=== PATIENT | male | born 2000 | race African-American/Black ===

== ENCOUNTER 2020-09-15 20:26 | Emergency (ER) | payer OTHER ==
--- NOTE | 2020-09-15 21:09 | XRAY Report ---
PROCEDURE: Chest 2 View X-Ray INDICATIONS: cough TECHNIQUE: 2 view(s) of the chest. COMPARISON: None. FINDINGS: Surgical changes and devices: None. Lungs and pleura: No pleural effusions or pneumothorax. Lungs are clear. Mediastinum: Mediastinal contours are normal. Heart size is normal. Bones and chest wall: No suspicious bony abnormalities. Soft tissues appear unremarkable. IMPRESSION: Normal chest pain films, without infiltrates. Reviewed by: Trevor Santillan MD on 09/15/2020 8:08 PM GILBERTO Approved by: Trevor Santillan MD on 09/15/2020 8:08 PM GILBERTO Station ID: [id number]
[2020-09-15] MEDS ORDERED: guaiFENesin/CODEINE 5 ML UDC PO STA (21:27)
--- NOTE | 2020-09-15 21:27 | ED Physician Documentation ---
PD HPI DYSPNEA - Stated complaint Stated Complaint: CONGESTION,COUGH - Chief complaint Chief Complaint: Resp - History obtained from History obtained from: Patient - Additional information Additional information: Previously healthy 20-year-old gentleman albeit with a history of pneumonia presents with 3 days of productive cough, some shortness of breath. He denies fevers or chills. He is fully immunized against Covid. Review of Systems Constitutional: denies: Fever, Chills Nose: denies: Rhinorrhea / runny nose Cardiac: denies: Chest pain / pressure, Palpitations PD PAST MEDICAL HISTORY - Past Medical History Past Medical History: Yes Respiratory: Pneumonia - Past Surgical History Past Surgical History: No - Present Medications Home Medications: Ambulatory Orders Medication Instructions Recorded Confirmed Albuterol Sulf [Ventolin Hfa 1 - 2 puffs INH Q4HR PRN #1 inhaler 09/15/20 Inhaler] Naproxen Sodium [Aleve] 1 tab PO DAILY PRN 09/15/20 09/15/20 guaiFENesin/CODEINE [Robitussin AC] 5 - 10 ml PO Q6H PRN #120 ml 09/15/20 - Allergies Allergies/Adverse Reactions: Allergies Allergy/AdvReac Type Severity Reaction Status Date / Time No Known Drug Allergies Allergy Verified 09/15/20 20:37 - Social History Does the pt smoke?: Yes Smoking Status: Current every day smoker Does the pt drink ETOH?: No Does the pt have substance abuse?: No - Immunizations Immunizations are current?: Yes - POLST Patient has POLST: No PD ED PE NORMAL - Vitals Vital signs reviewed: Yes - General General: Alert and oriented X 3, No acute distress - HEENT HEENT: PERRL, EOMI - Neck Neck: No bony TTP - Cardiac Cardiac: RRR, No murmur - Respiratory Respiratory: No respiratory distress, Clear bilaterally - Abdomen Abdomen: Non tender - Derm Derm: Normal color, Warm and dry Results - Vitals Vitals: Vital Signs - 24 hr 09/15/20 09/15/20 20:34 21:44 Temperature 36.6 C 36.9 C Heart Rate 86 77 Respiratory 18 16 Rate Blood Pressure 120/77 126/57 L O2 Saturation 97 98 Oxygen O2 Source Room air - Rads (name of study) 2 view chest x-ray Radiology: EMP read contemporaneously (Normal) PD MEDICAL DECISION MAKING - ED course ED course: 20-year-old gentleman presents with 3 days of productive cough but really no physical findings, chest x-ray negative. Nothing to suggest pneumonia. Watchful waiting and symptomatic medications were prescribed. Departure - Departure Disposition: 01 Home, Self Care Clinical Impression: Bronchitis Upper respiratory tract infection Qualifiers: URI type: unspecified viral URI Qualified Code(s): J06.9 - Acute upper respiratory infection, unspecified Condition: Good Record reviewed to determine appropriate education?: Yes Instructions: ED Upper Resp Infec No Abx Tx Prescriptions: Albuterol Sulf [Ventolin Hfa Inhaler] 1 - 2 puffs INH Q4HR PRN #1 inhaler PRN Reason: Shortness Of Air/Wheezing guaiFENesin/CODEINE [Robitussin AC] 5 - 10 ml PO Q6H PRN #120 ml PRN Reason: Cough Comments: Follow-up with your doctor in a few days if not better, return for new or worsening symptoms. Forms: Activity restrictions Discharge Date/Time: 09/15/20 21:48
[2020-09-15 21:46] VITALS: BP 126/57
== END 2020-09-15 21:48 | disposition home or self-care (01) ==
LOC: ED 20:26
DX: J20.9 Acute bronchitis, unspecified (principal); F17.200 Nicotine dependence, unspecified, uncomplicated
CPT/HCPCS: 71046; 99283; 99284; A9270

== ENCOUNTER 2021-02-07 01:20 | Emergency (ER) | payer OTHER ==
--- NOTE | 2021-02-07 01:36 | ED Physician Documentation ---
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 It was discovered that he had taken 2 Vicodin from an old bottle. The patient is not forthcoming with information. He does acknowledge depression he does acknowledge suicidal ideation and he does acknowledge that he does not have a plan. He is able to cooperate with review of systems and indicates that he is not currently ill. Review of Systems Constitutional: denies: Fever Eyes: denies: Decreased vision Ears: denies: Ear pain Nose: denies: Congestion Throat: denies: Sore throat Cardiac: denies: Chest pain / pressure Respiratory: denies: Dyspnea, Cough, Wheezing GI: denies: Abdominal Pain, Nausea, Vomiting, Constipation, Diarrhea : denies: Dysuria, Frequency Skin: denies: Rash Musculoskeletal: denies: Neck pain, Back pain, Extremity pain Neurologic: denies: Generalized weakness, Focal weakness, Numbness Psychiatric: reports: Depressed, Suicidal PD PAST MEDICAL HISTORY - Past Medical History Respiratory: Pneumonia - Past Surgical History Past Surgical History: No - Present Medications Home Medications: Ambulatory Orders Medication Instructions Recorded Confirmed Albuterol Sulf [Ventolin Hfa 1 - 2 puffs INH Q4HR PRN #1 inhaler 09/15/20 Inhaler] Naproxen Sodium [Aleve] 1 tab PO DAILY PRN 09/15/20 09/15/20 guaiFENesin/CODEINE [Robitussin AC] 5 - 10 ml PO Q6H PRN #120 ml 09/15/20 - Allergies Allergies/Adverse Reactions: Allergies Allergy/AdvReac Type Severity Reaction Status Date / Time No Known Drug Allergies Allergy Verified 02/07/21 01:34 - Social History Does the pt smoke?: Yes Smoking Status: Current every day smoker Does the pt drink ETOH?: No Does the pt have substance abuse?: No - Immunizations Immunizations are current?: Yes - POLST Patient has POLST: No PD ED PE NORMAL - Vitals Vital signs reviewed: Yes - General General: No acute distress, Well developed/nourished, Other (21-year-old male with a flat affect and minimal communication communicates mostly by nods. I am able to get him to engage when discussing who the characters are on his shoes. There are characters from anime.) - HEENT HEENT: Atraumatic, PERRL, EOMI - Neck Neck: Supple, no meningeal sign, No bony TTP, No adenopathy - Cardiac Cardiac: RRR, No murmur - Respiratory Respiratory: No respiratory distress, Clear bilaterally - Abdomen Abdomen: Normal bowel sounds, Soft, Non tender, Non distended, No organomegaly - Back Back: No CVA TTP, No spinal TTP - Derm Derm: Normal color, Warm and dry, No rash - Extremities Extremities: No deformity, No edema - Neuro Neuro: pearl glue drier 2-12 intact, No motor deficit, No sensory deficit, Normal speech Eye Opening: Spontaneous Motor: Obeys Commands Verbal: Oriented GCS Score: 15 - Psych Psych: Other (mood is withdrawn and the affect is flat ) Results - Vitals Vitals: Vital Signs - 24 hr 02/07/21 01:26 Temperature 36.7 C Heart Rate 60 Respiratory 18 Rate Blood Pressure 141/93 H O2 Saturation 99 Oxygen O2 Source Room air - Labs Labs: Laboratory Tests 02/07/21 02/07/21 02/07/21 01:35 01:41 01:41 WBC 10.6 RBC 6.76 H Hgb 13.3 L Hct 43.1 MCV 63.8 L MCH 19.7 L MCHC 30.9 L RDW 19.7 H Plt Count 280 MPV 8.8 Neut # (Auto) 7.6 H Lymph # (Auto) 2.1 [place] # (Auto) 0.8 Eos # (Auto) 0.1 Baso # (Auto) 0.0 Absolute Nucleated RBC 0.02 Nucleated RBC % 0.2 Manual Slide Review Indicated WBC Morphology NORMAL APPEARANCE Platelet Estimate NORMAL (130-450,000) Platelet Morphology NORMAL APPEARANCE RBC Morph Micro Appear 1+ MICROCYTOSIS Sodium 138 Potassium 3.7 Chloride 102 Carbon Dioxide 26 Anion Gap 10.0 BUN 18 Creatinine 1.0 Estimated GFR (MDRD) 114 Glucose 111 H Calcium 9.9 Total Bilirubin 1.0 AST 68 H ALT 103 H Alkaline Phosphatase 93 Total Protein 8.1 Albumin 4.7 Globulin 3.4 Albumin/Globulin Ratio 1.4 Lipase 41 TSH Urine Color YELLOW Urine Clarity CLEAR Urine pH 6.0 Ur Specific [place] 1.025 Urine Protein NEGATIVE Urine Glucose (UA) NEGATIVE Urine Ketones NEGATIVE Urine Occult Blood NEGATIVE Urine Nitrite NEGATIVE Urine Bilirubin NEGATIVE Urine Urobilinogen 0.2 (NORMAL) Ur Leukocyte Esterase NEGATIVE Ur Microscopic Review NOT INDICATED Urine Culture Comments NOT INDICATED Salicylates < 6.0 Urine Opiates Screen POSITIVE H Ur Oxycodone Screen NEGATIVE Urine Methadone Screen NEGATIVE Ur Propoxyphene Screen NEGATIVE Acetaminophen 11 Ur Barbiturates Screen NEGATIVE Ur Tricyclics Screen NEGATIVE Ur Phencyclidine Scrn NEGATIVE Ur Amphetamine Screen NEGATIVE U Methamphetamines Scrn NEGATIVE U Benzodiazepines Scrn NEGATIVE Urine Cocaine Screen NEGATIVE U Cannabinoids Screen NEGATIVE Ethyl Alcohol < 5.0 02/07/21 01:41 WBC RBC Hgb Hct MCV MCH MCHC RDW Plt Count MPV Neut # (Auto) Lymph # (Auto) Clarke # (Auto) Eos # (Auto) Baso # (Auto) Absolute Nucleated RBC Nucleated RBC % Manual Slide Review WBC Morphology Platelet Estimate Platelet Morphology RBC Morph Micro Appear Sodium Potassium Chloride Carbon Dioxide Anion Gap BUN Creatinine Estimated GFR (MDRD) Glucose Calcium Total Bilirubin AST ALT Alkaline Phosphatase Total Protein Albumin Globulin Albumin/Globulin Ratio Lipase TSH 2.43 Urine Color Urine Clarity Urine pH Ur Specific [place] Urine Protein Urine Glucose (UA) Urine Ketones Urine Occult Blood Urine Nitrite Urine Bilirubin Urine Urobilinogen Ur Leukocyte Esterase Ur Microscopic Review Urine Culture Comments Salicylates Urine Opiates Screen Ur Oxycodone Screen Urine Methadone Screen Ur Propoxyphene Screen Acetaminophen Ur Barbiturates Screen Ur Tricyclics Screen Ur Phencyclidine Scrn Ur Amphetamine Screen U Methamphetamines Scrn U Benzodiazepines Scrn Urine Cocaine Screen U Cannabinoids Screen Ethyl Alcohol PD MEDICAL DECISION MAKING - ED course Complexity details: reviewed old records, reviewed results, re-evaluated patient, considered differential, d/w patient ED course: 21-year-old male with apparent history of mental illness 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 He presents to the emergency department withdrawn and with a flattened affect and not willing to share information. He is able to cooperate with review of systems but specifics about his mental illness symptoms are not forthcoming. He does indicate that he is suicidal wants to hurt himself but does not have a plan. A physical exam is unremarkable and blood work and urinalysis are pending. The tox screen is positive for opiates and remainder of his work-up and physical exam are unremarkable. The patient does not appear to have overdosed on narcotic. He does not have a specific plan but continues to indicate that he is feeling suicidal. I have contacted Dr. Otero at [facility] and he is willing to accept Mr. Cheatham in transfer to the [facility]. Departure - Departure Disposition: 65 Psych Hosp/Unit DC/Xfer Clinical Impression: Suicidal ideation Depression Qualifiers: Depression Type: major depressive disorder Major depression recurrence: unspecified whether recurrent Active/Remission status: currently active Major depression episode severity: moderate Qualified Code(s): F32.1 - Major depressive disorder, single episode, moderate
[2021-02-07 01:42] LABS: BILIRUBIN,URINE NEGATIVE (NEGATIVE); CLARITY,URINE CLEAR (CLEAR); GLUCOSE, URINE (UA) NEGATIVE (NEGATIVE); KETONES,URINE (UA) NEGATIVE (NEGATIVE); LEUKOCYTE ESTERASE, URINE NEGATIVE (NEGATIVE); MUDS CUTOFF CONCENTRATIONS CUTOFF CONC BELOW:; NITRITE,URINE NEGATIVE (NEGATIVE); OCCULT BLOOD,URINE NEGATIVE (NEGATIVE); PROTEIN,URINE NEGATIVE (NEGATIVE); UROBILINOGEN,URINE 0.2 (NORMAL) E.U./dL (NORMAL)
[2021-02-07 01:45] LABS: BASOPHILS % (AUTO) 0.4 %; EOSINOPHILS # (AUTO) 0.1 10^3/uL (0.0-0.7); EOSINOPHILS % (AUTO) 0.7 %; HCT - HEMATOCRIT 43.1 % (42.0-52.0); HGB - HEMOGLOBIN 13.3 g/dL (14.0-18.0); LYMPHOCYTES # (AUTO) 2.1 10^3/uL (1.5-3.5); MEAN CORPUSCULAR HEMOGLOBIN 19.7 pg (27.0-31.0); MEAN CORPUSCULAR HGB CONC 30.9 g/dL (32.0-36.0); MEAN CORPUSCULAR VOLUME 63.8 fL (80.0-94.0); MEAN PLATELET VOLUME 8.8 fL (7.4-11.4); MONOCYTES # (AUTO) 0.8 10^3/uL (0.0-1.0); MONOCYTES % (AUTO) 7.7 %; NEUTROPHILS # (AUTO) 7.6 10^3/uL (1.5-6.6); NRBC ABSOLUTE COUNT (AUTO) 0.02 x10^3/uL; NUCLEATED RED BLOOD CELLS AUTO 0.2 /100WBC; PLT - PLATELET COUNT 280 10^3/uL (130-450); RED BLOOD COUNT 6.76 10^6/uL (4.70-6.10); RED CELL DISTRIBUTION WIDTH 19.7 % (12.0-15.0); WHITE BLOOD COUNT 10.6 x10^3/uL (4.8-10.8)
[2021-02-07 01:51] LABS: AMPHETAMINE SCREEN,URINE NEGATIVE (NEGATIVE); BARBITURATE SCREEN,UR NEGATIVE (NEGATIVE); BENZODIAZEPINES SCREEN, URINE NEGATIVE (NEGATIVE); COCAINE SCREEN URINE NEGATIVE (NEGATIVE); METHADONE SCREEN, URINE NEGATIVE (NEGATIVE); METHAMPHETAMINES SCREEN, URINE NEGATIVE (NEGATIVE); OPIATE SCREEN, URINE POSITIVE (NEGATIVE); OXYCODONE SCREEN, URINE NEGATIVE (NEGATIVE); PROPOXYPHENE SCREEN, URINE NEGATIVE (NEGATIVE); THC CANNABINOID SCREEN, URINE NEGATIVE (NEGATIVE); TRICYCLIC ANTIDEPRESSANT,URINE NEGATIVE (NEGATIVE)
[2021-02-07 02:00] LABS: ACETAMINOPHEN 11 ug/mL (10-30); ALBUMIN 4.7 g/dL (3.2-5.5); ALBUMIN/GLOBULIN RATIO 1.4 (1.0-2.2); ALKALINE PHOSPHATASE 93 IU/L (42-121); ALT ALANINE AMINOTRANSFERASE 103 IU/L (10-60); AST ASPARTATE AMINOTRANSFERASE 68 IU/L (10-42); BUN - BLOOD UREA NITROGEN 18 mg/dL (6-20); CALCIUM 9.9 mg/dL (8.5-10.3); CARBON DIOXIDE - CO2 26 mmol/L (21-32); CHLORIDE 102 mmol/L (101-111); ETOH - ETHANOL < 5.0 mg/dL; GFR - MDRD 114 (>89); GLUCOSE 111 mg/dL (70-100); LIPASE 41 U/L (22-51); PLATELET MORPHOLOGY NORMAL APPEARANCE (NORMAL); POTASSIUM 3.7 mmol/L (3.5-5.0); RBC MORPHOLOGY (MULTIPLE) 1+ MICROCYTOSIS (NORMAL); SALICYLATE < 6.0 mg/dL; SODIUM 138 mmol/L (135-145); TOTAL PROTEIN 8.1 g/dL (6.7-8.2)
[2021-02-07 02:01] LABS: PLATELET ESTIMATE, MANUAL NORMAL (130-450,000) (NORMAL); SLIDE REVIEW? Indicated; WBC MORPHOLOGY (MULTIPLE) NORMAL APPEARANCE (NORMAL)
[2021-02-07 05:49] LABS: B. PARAPERTUSSIS- RESP PCR PAN NOT DETECTED; B. PERTUSSIS- RESP PCR PANEL NOT DETECTED; C. PNEUMONIAE- RESP PCR PANEL NOT DETECTED; CORONAVIRUS 229E-RESP PCR NOT DETECTED; CORONAVIRUS HKU1-RESP PCR NOT DETECTED; CORONAVIRUS NL63-RESP PCR NOT DETECTED; CORONAVIRUS OC43-RESP PCR NOT DETECTED; HUMAN METAPNEUMOVIRUS NOT DETECTED; INFLUENZA A- RESP PCR PANEL NOT DETECTED; INFLUENZA B - RESP PCR PANEL NOT DETECTED; M. PNEUMONIAE- RESP PCR PANEL NOT DETECTED; PARAINFLUENZA VIRUS 1 NOT DETECTED; PARAINFLUENZA VIRUS 2 NOT DETECTED; PARAINFLUENZA VIRUS 3 NOT DETECTED; PARAINFLUENZA VIRUS 4 NOT DETECTED; RHINOVIRUS/ENTEROVIRUS NOT DETECTED; RSV- RESP PCR PANEL NOT DETECTED; SARS-CoV-2 -RESP PCR PANEL NOT DETECTED
[2021-02-07 08:24] VITALS: BP 119/69
== END 2021-02-07 08:28 ==
LOC: EDUNIT# → ED 01:20
DX: R45.851 Suicidal ideations (principal); F17.200 Nicotine dependence, unspecified, uncomplicated
CPT/HCPCS: 0202U; 36415; 80053; 80306; 80307; 80320; 80329; 81003; 83690; 84443; 85025; 99283; 99285; 81001; 87086

== ENCOUNTER 2021-07-13 21:05 | Emergency (ER) | payer OTHER ==
[2021-07-13] MEDS ORDERED: MAG HYDROX/AL HYDROX/SIMETH 30 ML UDC PO STA (21:37)
[2021-07-13] MEDS ORDERED: LIDOCAINE VISCOUS 2% 15 ML UDC MM STA (21:37)
[2021-07-13] MEDS ORDERED: ONDANSETRON ODT 4 MG Prepack 2 TL PRN (21:37)
[2021-07-13] MEDS ORDERED: FAMOTIDINE 20 MG TABLET PO STA (21:38)
[2021-07-13] MEDS ORDERED: diphenhydrAMINE ELIXIR 25 MG/10 ML UDC PO STA (21:38)
--- NOTE | 2021-07-13 21:40 | ED Physician Documentation ---
History of Present Illness - Stated complaint Stated Complaint: ABD PAIN, C+, DIZZY - Chief complaint Chief Complaint: Abd Pain - History obtained from History obtained from: Patient - Additonal information Additional information: 21yM with pmh depression, recent diagnosis of covid 6 days ago (fully vaccinated but not boosted), p/w epigastric abd pain gradual onset, constant since noon today, burning, radiating to midupper abdomen, a/w loose stool prior to arrival. patient has had 3 BMs today which is unusual for him. denies urinary sx, back pain, soa, fever, cough. Patient denies PSH. Social- occasional etoh (1-2 servings a week). Patient denies drinking this week. +smoker Review of Systems Ten Systems: 10 systems reviewed and negative Constitutional: denies: Fever, Chills, Myalgias, Fatigue Cardiac: denies: Chest pain / pressure Respiratory: denies: Dyspnea, Cough GI: reports: Nausea, Diarrhea. denies: Vomiting, Constipation : denies: Dysuria, Frequency, Hematuria Neurologic: reports: Generalized weakness PD PAST MEDICAL HISTORY - Past Medical History Respiratory: Pneumonia - Past Surgical History Past Surgical History: No - Present Medications Home Medications: Ambulatory Orders Medication Instructions Recorded Confirmed Albuterol Sulf [Ventolin Hfa 1 - 2 puffs INH Q4HR PRN #1 inhaler 09/15/20 Inhaler] Naproxen Sodium [Aleve] 1 tab PO DAILY PRN 09/15/20 09/15/20 guaiFENesin/CODEINE [Robitussin AC] 5 - 10 ml PO Q6H PRN #120 ml 09/15/20 Ondansetron Odt [Zofran Odt] 4 mg TL Q6H PRN #10 tablet 07/13/21 Sertraline HCl 200 mg 07/13/21 - Allergies Allergies/Adverse Reactions: Allergies Allergy/AdvReac Type Severity Reaction Status Date / Time No Known Drug Allergies Allergy Verified 02/07/21 01:34 - Social History Does the pt smoke?: Yes Smoking Status: Current every day smoker Does the pt drink ETOH?: No Does the pt have substance abuse?: No - Immunizations Immunizations are current?: Yes - POLST Patient has POLST: No PD ED PE NORMAL - Vitals Vital signs reviewed: Yes - General General: Alert and oriented X 3, No acute distress, Well developed/nourished - HEENT HEENT: Atraumatic, PERRL, EOMI - Neck Neck: Supple, no meningeal sign - Cardiac Cardiac: RRR - Respiratory Respiratory: No respiratory distress, Clear bilaterally - Abdomen Abdomen: Non tender, Non distended, Other (epigastric discomfort to palpation) - Back Back: No CVA TTP - Derm Derm: Normal color, Warm and dry - Extremities Extremities: No deformity, No edema - Neuro Neuro: Alert and oriented X 3, No motor deficit, No sensory deficit - Psych Psych: Normal mood, Normal affect Results - Vitals Vitals: Vital Signs - 24 hr 07/13/21 21:13 Temperature 37.2 C Heart Rate 73 Respiratory 16 Rate Blood Pressure 137/95 H O2 Saturation 98 Oxygen O2 Source Room air PD MEDICAL DECISION MAKING - ED course ED course: 21yM with pmh depression and recent covid 19 diagnosis p/w nausea, loose stools, and epigastric pain. Abdominal exam benign and vitals are normal. symptomatic care provided and return precautions given. Departure - Departure Disposition: 01 Home, Self Care Clinical Impression: COVID-19, Abdominal pain, Loose stools Condition: Stable Instructions: COVID-19 [facility], COVID-19 [facility] Department Statement Prescriptions: Ondansetron Odt [Zofran Odt] 4 mg TL Q6H PRN #10 tablet PRN Reason: Nausea / Vomiting Comments: You were seen in the emergency department for nausea, abdominal pain, and COVID- 19. You can take Zofran as needed for nausea and [id number] Maalox or Gaviscon for abdominal pain. Return to the emergency department if you have any new or worsening symptoms or other concerns.[place]
[2021-07-13 22:13] VITALS: BP 128/89
== END 2021-07-13 22:13 | disposition home or self-care (01) ==
LOC: EDUNIT# → EDBD → ED 21:05
DX: U07.1 COVID-19 (principal); R10.13 Epigastric pain; R19.7 Diarrhea, unspecified; R11.0 Nausea; F17.200 Nicotine dependence, unspecified, uncomplicated
CPT/HCPCS: 99283; 99284; A9270

== ENCOUNTER 2021-09-05 14:02 | Observation (INO) | payer OTHER ==
[2021-09-05 15:08] LABS: BASOPHILS % (AUTO) 0.3 %; EOSINOPHILS # (AUTO) 0.1 10^3/uL (0.0-0.7); EOSINOPHILS % (AUTO) 1.8 %; HCT - HEMATOCRIT 36.4 % (42.0-52.0); HGB - HEMOGLOBIN 11.5 g/dL (14.0-18.0); LYMPHOCYTES # (AUTO) 2.1 10^3/uL (1.5-3.5); LYMPHOCYTES % (AUTO) 26.5 %; MEAN CORPUSCULAR HEMOGLOBIN 19.5 pg (27.0-31.0); MEAN CORPUSCULAR HGB CONC 31.6 g/dL (32.0-36.0); MEAN CORPUSCULAR VOLUME 61.6 fL (80.0-94.0); MEAN PLATELET VOLUME 8.8 fL (7.4-11.4); MONOCYTES # (AUTO) 0.8 10^3/uL (0.0-1.0); MONOCYTES % (AUTO) 10.3 %; NEUTROPHILS # (AUTO) 4.9 10^3/uL (1.5-6.6); NEUTROPHILS % (AUTO) 60.8 %; PLT - PLATELET COUNT 241 10^3/uL (130-450); RED BLOOD COUNT 5.91 10^6/uL (4.70-6.10); RED CELL DISTRIBUTION WIDTH 18.3 % (12.0-15.0)
[2021-09-05 16:00] LABS: CALCIUM 9.7 mg/dL (8.5-10.3); CREATININE 0.9 mg/dL (0.6-1.2); POTASSIUM 3.9 mmol/L (3.5-5.0)
[2021-09-05] MEDS ORDERED: SODIUM CHLORIDE 0.9% 1,000 ML IV STA (16:03)
--- NOTE | 2021-09-05 16:46 | ED Physician Documentation ---
PD HPI UPPER EXT INJURY - Stated complaint Stated Complaint: BILAT ARM PX - Chief complaint Chief Complaint: Ext Problem - History obtained from History obtained from: Patient - Additonal information Additional information: 4 days ago he was lifting weights with the upper extremities, mostly curls, heavily. Developed pain The next [place], presumed rhabdomyolysis as he was referred to the emergency department without a call ahead for admission. Review of Systems Ten Systems: 10 systems reviewed and negative Constitutional: reports: Reviewed and negative Cardiac: reports: Reviewed and negative Respiratory: reports: Reviewed and negative PD PAST MEDICAL HISTORY - Past Medical History Respiratory: Pneumonia - Past Surgical History Past Surgical History: No - Present Medications Home Medications: Ambulatory Orders Medication Instructions Recorded Confirmed Albuterol Sulf [Ventolin Hfa 1 - 2 puffs INH Q4HR PRN #1 inhaler 09/15/20 Inhaler] Naproxen Sodium [Aleve] 1 tab PO DAILY PRN 09/15/20 09/15/20 guaiFENesin/CODEINE [Robitussin AC] 5 - 10 ml PO Q6H PRN #120 ml 09/15/20 Ondansetron Odt [Zofran Odt] 4 mg TL Q6H PRN #10 tablet 07/13/21 Sertraline HCl 200 mg 07/13/21 - Allergies Allergies/Adverse Reactions: Allergies Allergy/AdvReac Type Severity Reaction Status Date / Time No Known Drug Allergies Allergy Verified 09/05/21 14:10 - Social History Does the pt smoke?: Yes Smoking Status: Current every day smoker Does the pt drink ETOH?: No Does the pt have substance abuse?: No - Immunizations Immunizations are current?: Yes - POLST Patient has POLST: No PD ED PE NORMAL - Vitals Vital signs reviewed: Yes - General General: Alert and oriented X 3, No acute distress - HEENT HEENT: PERRL, EOMI - Neck Neck: Supple, no meningeal sign, No bony TTP - Cardiac Cardiac: RRR, No murmur - Respiratory Respiratory: No respiratory distress, Clear bilaterally - Abdomen Abdomen: Normal bowel sounds, Soft, Non tender - Extremities Extremities: Other (Mild tenderness of the biceps and forearms, no tense compartments and full range of motion noted.) - Neuro Neuro: Alert and oriented X 3, Normal speech - Psych Psych: Normal mood, Normal affect Results - Vitals Vitals: Vital Signs - 24 hr 09/05/21 14:10 Temperature 36.5 C Heart Rate 75 Respiratory 16 Rate Blood Pressure 137/75 H O2 Saturation 99 Oxygen O2 Source Room air - Labs Labs: Laboratory Tests 09/05/21 09/05/21 15:05 15:05 WBC 8.0 RBC 5.91 Hgb 11.5 L Hct 36.4 L MCV 61.6 L MCH 19.5 L MCHC 31.6 L RDW 18.3 H Plt Count 241 MPV 8.8 Neut # (Auto) 4.9 Lymph # (Auto) 2.1 [place] # (Auto) 0.8 Eos # (Auto) 0.1 Baso # (Auto) 0.0 Absolute Nucleated RBC 0.00 Nucleated RBC % 0.0 Sodium 136 Potassium 3.9 Chloride 101 Carbon Dioxide 27 Anion Gap 8.0 BUN 16 Creatinine 0.9 Estimated GFR (MDRD) 129 Glucose 102 H Calcium 9.7 Total Creatine Kinase 31568 H* PD MEDICAL DECISION MAKING - ED course ED course: 21-year-old gentleman with weight lifting related rhabdomyolysis with CK of 31,[address]. Will place on IV fluids. Spoke with Dr. Crowell for admission at 4:50 PM. Departure - Departure Disposition: ED Place in Observation Clinical Impression: Rhabdomyolysis Condition: Serious
[2021-09-05] MEDS ORDERED: ACETAMINOPHEN 325 MG TABLET PO PRN (16:53)
[2021-09-05] MEDS ORDERED: SODIUM CHLORIDE FLUSH 0.9% 10 ML SYRINGE IVP PRN (16:53)
[2021-09-05] MEDS ORDERED: ONDANSETRON ODT 4 MG TABLET TL PRN (16:53)
--- NOTE | 2021-09-05 16:57 | HISTORY & PHYSICAL EXAMINATION ---
Chief Complaint - Chief Complaint Chief Complaint: Arm pain History of Present Illness - Admitted From Admitted From:: Home - History Obtained From Records Reviewed: [facility] History obtained from: Patient, ER Physician, EMR - History of Present Illness HPI Comment/Other: This is a 21-year-old male with a past medical history significant for depress ion who presents today complaining of bilateral arm pain. He states his symptoms began after working out on Thursday. He had upper body workout where he did some curls for about an hour. This was the first time he had worked out in a month. He had arm soreness the following 2 days. He states the pain is only in his upper extremities predominantly in his biceps and forearms as well as upper back. He complains of no leg pain. He did play basketball and football the following days. He has been taking Aleve as needed for pain. Because his pain did not improve over the next few days, he contacted his primary care physician who ordered labs and the patient states he was told upon the numbers is greater than 5000 and he will need to come to the emergency department. He states he had a similar episode when he was younger after working out and the pain ultimately resolved after a week and a half. He never had labs done at that time. He reports no weakness or numbness in his upper extremities. He believes his urine may have been a little darker this past few days but it has since cleared up and it appears normal. He has not noticed any blood in his urine. He states he did have a history of iron deficiency anemia when he was a child but stopped taking iron at around the age of 8. His father reportedly has a history of thalassemia. The patient does not believe he has ever been told this in the past. He has noticed occasional blood after a bowel movement. He denies any black stool and states he has not had any bleeding in about a month and he has only noticed a small amount when he wipes. Here in the emergency department, he was noted to have an elevated CK at 31,000. Given this, medicine was consulted for admission. History - Past Medical History Psych: reports: Depression MRSA Hx?: No - Family & Social History Family History Comment/Other: He reports his father has a history of anemia and his mother believes that this is thalassemia. Living arrangement: At home Social History Notes: He moved to [facility] about 2 years ago for the [employer]. He is originally from the [place]. He is a non-smoker. - POLST Patient has POLST: No Meds/Allgy - Home Medications Home Medications: Ambulatory Orders Medication Instructions Recorded Confirmed Ondansetron Odt [Zofran Odt] 4 mg TL Q6H PRN #10 tablet 07/13/21 Sertraline HCl 200 mg 07/13/21 - Allergies Allergies/Adverse Reactions: Allergies Allergy/AdvReac Type Severity Reaction Status Date / Time No Known Drug Allergies Allergy Verified 09/05/21 14:10 Review of Systems - Constitutional Constitutional: reports: Chills. denies: Fever - Cardiovascular Cariovascular: denies: Chest pain, Edema, Exertional dyspnea, Decr. exercise tolerance - Respiratory Respiratory: denies: Cough, SOB at rest - Gastrointestinal Gastrointestinal: reports: Rectal bleeding. denies: Abdominal pain, Black stools, Bloody stools, Nausea, Vomiting - Genitourinary Genitourinary: denies: Dysuria, Frequency, Urgency, Hematuria - Musculoskeletal Musculoskeletal: reports: Muscle pain, Muscle aches, Stiffness. denies: Limited range of motion, Muscle weakness, Joint pain - Integumentary Integumentary: denies: Rash - Hematologic/Lymphatic Hematologic/Lymphatic: reports: Anemia. denies: Bleeding tendencies - All Other Systems All Other Systems: reports: Reviewed and negative Prior Level of Functionality: He is independent with his ADLs. Exam - Vital Signs Reviewed Vital Signs: Yes Vital Signs: Vital Signs x48h Temp Pulse Resp BP Pulse Ox 09/05/21 16:51 81 16 146/58 H 100 09/05/21 14:10 36.5 C 75 16 137/75 H 99 - Physical Exam General Appearance: positive: No acute distress, Alert Eyes Bilateral: positive: Normal inspection, Conjunctivae nml ENT: positive: ENT inspection nml Neck: positive: Nml inspection Respiratory: positive: No respiratory distress. negative: Wheezes, Rales Cardiovascular: positive: Regular rate & rhythm, No murmur. negative: Tachycardia Abdomen: positive: Non-tender, No distention. negative: Tenderness Skin: positive: Warm, Dry Extremities: positive: No pedal edema, Other (He has mild tenderness of the bilateral biceps and forearms. The compartments are soft. He has full range of motion. Sensation is intact and capillary refill is less than 2 seconds.) Neurologic/Psychiatric: positive: Motor nml. negative: Disoriented to person, Disoriented to place, Disoriented to time Conclusion/Plan - Problem List (1) Rhabdomyolysis Conclusion/Plan: This is secondary to weight training. Presents the bilateral upper extremities without evidence of compartment syndrome. His CKs are greater than 31,000. No evidence of renal dysfunction and his urine appears clear and is not tea color or dark. We will place in observation and start him on lactated Ringer's at 250 mL an hour. We will recheck CKs in the morning. Discussed with the patient that we may potentially able to discharge him tomorrow based off of his CK level or he may need on the day of hospitalization. We also discussed that he may need to alter his workout regimen in the future if this is a recurrent theme. Qualifiers: Rhabdomyolysis type: non-traumatic Qualified Code(s): M62.82 - Rhabdomyolysis (2) Microcytic anemia Conclusion/Plan: He is mildly anemic with a significantly decreased MCV. He reports a prior history of iron deficiency anemia but is not on iron supplementation. We will check iron studies to evaluate for iron deficiency. If this is unremarkable then he will need work-up for thalassemia especially given his father has a history of thalassemia. 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 This can be done on an outpatient basis. (3) Depression Conclusion/Plan: Stable. We will continue home sertraline. - Lab Results Lab results reviewed: Yes Fish Bones: 09/05/21 15:05 09/05/21 15:05 Core Measures - Anticipated LOS I expect patient to be DC'd or transferred within 96 hours.: Yes - Issues Hospital Issues and Management Plan: This is a 21-year-old male who presents with bilateral upper extremity pain found to have rhabdomyolysis. He will be placed in observation for IV fluids and monitoring of his CKs. - DVT/VTE - Prophylaxis VTE/DVT Device ordered at admit?: No Not Ordered - Low Risk: Very low risk VTE/DVT Prophylaxis med ordered at admit?: No
[2021-09-05 17:18] LABS: % IRON SATURATION 17 % (20-50); IRON 76 ug/dL (45-182); TOTAL IRON BINDING CAPACITY 447 ug/dL (250-450); TRANSFERRIN 319 mg/dL (180-329)
[2021-09-05] MEDS ORDERED: LACTATED RINGERS 1,000 ML IV ONE (18:00)
[2021-09-05] MEDS: LACTATED RINGERS 1,000 ML IV SCH ×2 (18:58→22:12)
[2021-09-06] MEDS: SODIUM CHLORIDE FLUSH 0.9% 10 ML SYRINGE IVP SCH ×4 (00:27→23:49)
[2021-09-06] MEDS: LACTATED RINGERS 1,000 ML IV SCH ×6 (02:04→23:48)
[2021-09-06 05:15] LABS: BASOPHILS % (AUTO) 0.4 %; EOSINOPHILS # (AUTO) 0.2 10^3/uL (0.0-0.7); EOSINOPHILS % (AUTO) 2.3 %; HCT - HEMATOCRIT 33.3 % (42.0-52.0); HGB - HEMOGLOBIN 10.5 g/dL (14.0-18.0); LYMPHOCYTES # (AUTO) 2.9 10^3/uL (1.5-3.5); LYMPHOCYTES % (AUTO) 38.7 %; MEAN CORPUSCULAR HEMOGLOBIN 19.5 pg (27.0-31.0); MEAN CORPUSCULAR HGB CONC 31.5 g/dL (32.0-36.0); MEAN CORPUSCULAR VOLUME 61.8 fL (80.0-94.0); MONOCYTES # (AUTO) 0.6 10^3/uL (0.0-1.0); MONOCYTES % (AUTO) 8.1 %; NEUTROPHILS # (AUTO) 3.8 10^3/uL (1.5-6.6); NEUTROPHILS % (AUTO) 50.1 %; NRBC ABSOLUTE COUNT (AUTO) 0.03 x10^3/uL; NUCLEATED RED BLOOD CELLS AUTO 0.4 /100WBC; PLT - PLATELET COUNT 233 10^3/uL (130-450); RED BLOOD COUNT 5.39 10^6/uL (4.70-6.10); WHITE BLOOD COUNT 7.5 x10^3/uL (4.8-10.8)
[2021-09-06 05:54] LABS: POTASSIUM 3.9 mmol/L (3.5-5.0)
--- NOTE | 2021-09-06 10:53 | PHARMACY PROGRESS NOTE ---
- Best Possible Medication History Admit Date and Time: 09/05/21 5743 Processed by: Pharmacy Medication History completed: Yes Patient Interview: Pt interview ONLY source As the person ultimately responsible for medication therapy, providers are able to order a medication from an existing home medication list in [facility] via the "Reconcile Routine" prior to Confirmation of that medication by ict customer support officer. Such practice is discouraged except when the physician, in their clinical judgment, deems that a medical need exists for a medication without regard to previous use.
[2021-09-06] MEDS ORDERED: LACTATED RINGERS 1,000 ML IV ONE (13:03)
--- NOTE | 2021-09-06 13:03 | PROVIDER PROGRESS NOTE ---
Subjective - Prog Note Date Prog Note Date: 09/06/21 - Subjective Subjective: He feels about the same. Arm soreness a little improved but still present. He has been urinating frequently and drinking plenty of fluids. Current Medications - Current Medications Current Medications: Active Medications Acetaminophen (Acetaminophen 325 Mg Tablet) 650 mg PO Q4HR PRN PRN Reason: Pain 1 to 4, or Fever Lactated Ringer's (Lr) 1,000 mls @ 250 mls/hr IV .Q4H [facility] Last Admin: 09/06/21 10:01 Dose: 250 mls/hr Ondansetron HCl (Ondansetron Odt 4 Mg Tablet) 4 mg TL Q6HR PRN PRN Reason: Nausea / Vomiting Sodium Chloride (Sodium Chloride Flush 0.9% 10 Ml Syringe) 10 ml IVP PRN PRN PRN Reason: NEEDED PER PROVIDER ORDERS Last Admin: 09/05/21 18:02 Dose: 10 ml Sodium Chloride (Sodium Chloride Flush 0.9% 10 Ml Syringe) 10 ml IVP 0100,0900,1700 [facility] Last Admin: 09/06/21 08:25 Dose: Not Given Sertraline HCl 200 mg PO DAILY 07/13/21 hydrOXYzine HCL [Hydroxyzine HCl] 50 mg PO QPM 09/06/21 polyethylene glycoL 3350 [Miralax] 17 gm PO DAILY PRN 09/06/21 Objective - Vital Signs/Intake & Output Reviewed Vital Signs: Yes Vital Signs: Vital Signs x48h Temp Pulse Resp BP Pulse Ox 09/06/21 11:10 36.9 C 62 16 130/69 100 09/06/21 07:33 36.8 C 66 16 127/59 L 99 09/06/21 05:47 36.7 C 67 16 120/60 99 Intake & Output: Intake & Output 09/03/21 09/04/21 09/05/21 09/06/21 23:59 23:59 23:59 23:59 Intake Total 2508.333 2945.834 Output Total 600 700 Balance 9822.041 8796.834 - Objective General Appearance: positive: No acute distress, Alert Eyes Bilateral: positive: Normal inspection, Conjunctivae nml Extremities: positive: Other (track laminating machine tender over the bilateral biceps, triceps, forearms. Sensation is intact. Compartments are soft.) - Lab Results Fish Bones: 04/16/22 04:15 09/07/21 04:15 Other Labs: Lab Results x24hrs 09/06/21 09/06/21 09/06/21 Range/Units 11:52 04:36 04:36 WBC (4.8-10.8) x10^3/uL RBC (4.70-6.10) 10^6/uL Hgb (14.0-18.0) g/dL Hct (42.0-52.0) % MCV (80.0-94.0) fL MCH (27.0-31.0) pg MCHC (32.0-36.0) g/dL RDW (12.0-15.0) % Plt Count (130-450) 10^3/uL MPV (7.4-11.4) fL Neut # (Auto) (1.5-6.6) 10^3/uL Lymph # (Auto) (1.5-3.5) 10^3/uL Swisher # (Auto) (0.0-1.0) 10^3/uL Eos # (Auto) (0.0-0.7) 10^3/uL Baso # (Auto) (0.0-0.1) 10^3/uL Absolute Nucleated RBC x10^3/uL Nucleated RBC % /100WBC Sodium 137 (135-145) mmol/L Potassium 3.9 (3.5-5.0) mmol/L Chloride 102 (101-111) mmol/L Carbon Dioxide 27 (21-32) mmol/L Anion Gap 8.0 (6-13) BUN 12 (6-20) mg/dL Creatinine 1.0 (0.6-1.2) mg/dL Estimated GFR (MDRD) 114 (>89) Glucose 92 (70-100) mg/dL Calcium 9.0 (8.5-10.3) mg/dL Phosphorus 4.5 (2.5-4.6) mg/dL Iron (45-182) ug/dL TIBC (250-450) ug/dL % Saturation (20-50) % Transferrin (180-329) mg/dL Ferritin (23.9-336.2) ng/mL Total Creatine Kinase 56036 H* 42086 H* (22-269) IU/L SARS-CoV-2 (PCR) 09/06/21 09/05/21 09/05/21 Range/Units 04:36 16:30 15:05 WBC 7.5 (4.8-10.8) x10^3/uL RBC 5.39 (4.70-6.10) 10^6/uL Hgb 10.5 L (14.0-18.0) g/dL Hct 33.3 L (42.0-52.0) % MCV 61.8 L (80.0-94.0) fL MCH 19.5 L (27.0-31.0) pg MCHC 31.5 L (32.0-36.0) g/dL RDW 18.0 H (12.0-15.0) % Plt Count 233 (130-450) 10^3/uL MPV 9.0 (7.4-11.4) fL Neut # (Auto) 3.8 (1.5-6.6) 10^3/uL Lymph # (Auto) 2.9 (1.5-3.5) 10^3/uL Swisher # (Auto) 0.6 (0.0-1.0) 10^3/uL Eos # (Auto) 0.2 (0.0-0.7) 10^3/uL Baso # (Auto) 0.0 (0.0-0.1) 10^3/uL Absolute Nucleated RBC 0.03 x10^3/uL Nucleated RBC % 0.4 /100WBC Sodium (135-145) mmol/L Potassium (3.5-5.0) mmol/L Chloride (101-111) mmol/L Carbon Dioxide (21-32) mmol/L Anion Gap (6-13) BUN (6-20) mg/dL Creatinine (0.6-1.2) mg/dL Estimated GFR (MDRD) (>89) Glucose (70-100) mg/dL Calcium (8.5-10.3) mg/dL Phosphorus (2.5-4.6) mg/dL Iron (45-182) ug/dL TIBC (250-450) ug/dL % Saturation (20-50) % Transferrin (180-329) mg/dL Ferritin 14.2 L (23.9-336.2) ng/mL Total Creatine Kinase (22-269) IU/L SARS-CoV-2 (PCR) NOT DETECTED 09/05/21 09/05/21 09/05/21 Range/Units 15:05 15:05 15:05 WBC 8.0 (4.8-10.8) x10^3/uL RBC 5.91 (4.70-6.10) 10^6/uL Hgb 11.5 L (14.0-18.0) g/dL Hct 36.4 L (42.0-52.0) % MCV 61.6 L (80.0-94.0) fL MCH 19.5 L (27.0-31.0) pg MCHC 31.6 L (32.0-36.0) g/dL RDW 18.3 H (12.0-15.0) % Plt Count 241 (130-450) 10^3/uL MPV 8.8 (7.4-11.4) fL Neut # (Auto) 4.9 (1.5-6.6) 10^3/uL Lymph # (Auto) 2.1 (1.5-3.5) 10^3/uL Swisher # (Auto) 0.8 (0.0-1.0) 10^3/uL Eos # (Auto) 0.1 (0.0-0.7) 10^3/uL Baso # (Auto) 0.0 (0.0-0.1) 10^3/uL Absolute Nucleated RBC 0.00 x10^3/uL Nucleated RBC % 0.0 /100WBC Sodium 136 (135-145) mmol/L Potassium 3.9 (3.5-5.0) mmol/L Chloride 101 (101-111) mmol/L Carbon Dioxide 27 (21-32) mmol/L Anion Gap 8.0 (6-13) BUN 16 (6-20) mg/dL Creatinine 0.9 (0.6-1.2) mg/dL Estimated GFR (MDRD) 129 (>89) Glucose 102 H (70-100) mg/dL Calcium 9.7 (8.5-10.3) mg/dL Phosphorus (2.5-4.6) mg/dL Iron 76 (45-182) ug/dL TIBC 447 (250-450) ug/dL % Saturation 17 L (20-50) % Transferrin 319 (180-329) mg/dL Ferritin (23.9-336.2) ng/mL Total Creatine Kinase 47574 H* (22-269) IU/L SARS-CoV-2 (PCR) Assessment/Plan - Problem List (1) Rhabdomyolysis Impression: This is secondary to weight training. The plan was to discharge him today after IV hydration and his CKs were improving down to 21,000 but recheck this afternoon I increased again up to 28,000. Given the rise, we will keep him hospitalized 1 more night for IV hydration. We will recheck again this evening and in the morning to ensure we are trending in the right direction. Continue LR at 250 mL an hour. I also discussed with the patient given the significant rhabdomyolysis from weight training, we need to consider outpatient work-up for sickle cell trait as these patients can have more severe rhabdomyolysis with exertional activity. Qualifiers: Rhabdomyolysis type: non-traumatic Qualified Code(s): M62.82 - Rhabdomyolysis (2) Microcytic anemia Impression: His iron is the normal limits but his ferritin is decreased. Percent saturation is also decreased and his TIBC is read on the upper limits of normal. Suspect there is likely component of iron deficiency but this this may also related to undiagnosed thalassemia minor and he will need outpatient work-up. We will start him on oral iron. (3) Depression Impression: Continue sertraline.
[2021-09-07] MEDS: LACTATED RINGERS 1,000 ML IV SCH ×2 (03:24→07:32)
[2021-09-07 05:19] LABS: BASOPHILS % (AUTO) 0.3 %; EOSINOPHILS # (AUTO) 0.2 10^3/uL (0.0-0.7); HGB - HEMOGLOBIN 10.2 g/dL (14.0-18.0); LYMPHOCYTES # (AUTO) 2.8 10^3/uL (1.5-3.5); LYMPHOCYTES % (AUTO) 35.2 %; MEAN CORPUSCULAR HEMOGLOBIN 19.2 pg (27.0-31.0); MEAN CORPUSCULAR HGB CONC 30.9 g/dL (32.0-36.0); MEAN CORPUSCULAR VOLUME 62.1 fL (80.0-94.0); MEAN PLATELET VOLUME 9.5 fL (7.4-11.4); MONOCYTES # (AUTO) 0.7 10^3/uL (0.0-1.0); MONOCYTES % (AUTO) 8.9 %; NEUTROPHILS # (AUTO) 4.3 10^3/uL (1.5-6.6); NEUTROPHILS % (AUTO) 53.3 %; NRBC ABSOLUTE COUNT (AUTO) 0.02 x10^3/uL; NUCLEATED RED BLOOD CELLS AUTO 0.3 /100WBC; PLT - PLATELET COUNT 246 10^3/uL (130-450); RED BLOOD COUNT 5.31 10^6/uL (4.70-6.10); RED CELL DISTRIBUTION WIDTH 18.2 % (12.0-15.0)
[2021-09-07 05:47] LABS: SLIDE REVIEW? Indicated
[2021-09-07 05:56] LABS: PLATELET ESTIMATE, MANUAL NORMAL (130-450,000) (NORMAL); PLATELET MORPHOLOGY NORMAL APPEARANCE (NORMAL); RBC MORPHOLOGY (MULTIPLE) 2+ MICROCYTOSIS (NORMAL); WBC MORPHOLOGY (MULTIPLE) NORMAL APPEARANCE (NORMAL)
[2021-09-07 06:02] LABS: CALCIUM 9.4 mg/dL (8.5-10.3); POTASSIUM 4.2 mmol/L (3.5-5.0)
[2021-09-07 07:35] VITALS: BP 137/76
[2021-09-07] MEDS: SODIUM CHLORIDE FLUSH 0.9% 10 ML SYRINGE IVP SCH (07:35)
--- NOTE | 2021-09-07 09:24 | Discharge Plan ---
Discharge Plan Problem Reviewed?: Yes Disposition: Home, Self Care Condition: Stable Prescriptions: Ferrous Sulfate [Feosol] 325 mg PO DAILYWM #30 tablet Diet: Regular Activity Restrictions: Activity as Tolerated Health Concerns: You were admitted to the hospital because of rhabdomyolysis which is muscle breakdown. This occurred due to your workout this past Thursday. We treated you with IV fluids and there was no evidence of kidney involvement which is what we are most worried about. Your numbers are trending down and you are now stable for discharge. You are also found to be anemic and we suspect there may be a component of iron deficiency anemia so we have prescribed oral iron to take at home. You should also follow-up with your primary care physician to have testing done for potential thalassemia and sickle cell trait. Plan of Treatment: Please drink plenty of fluids (about one gallon a day) and monitor the color of your urine. If your urine becomes tea colored or quite dark that appears similar to blood then please either contact your primary care physician or return to the emergency department as this can be evidence of worsening muscle b reakdown. Please do not work out until you follow-up with your primary care physician. You may need to monitor your workouts in the future to prevent this from reoccurring. Please take iron supplementation once a day and follow-up with your primary care physician to have work-up for potential thalassemia and sickle cell trait. Assessment: The patient expressed understanding of the treatment plan. Additional Instructions or Follow Up instructions: Please follow-up with your primary care physician this week. Please return to the emergency department if you have worsening pain or darkening of your urine as mentioned above. No Smoking: If you smoke, Please STOP! Call for help. Follow-up with: NICKI GONZALEZ MD [Primary Care Provider] -
--- NOTE | 2021-09-07 09:28 | DISCHARGE SUMMARY ---
Discharge Summary Admit Date: 09/05/21 Discharge Date: 09/07/21 Discharging Provider: Mendel Crowell Primary Care Provider: Casie Rainey Code Status: Attempt Resuscitation Condition at Discharge: Stable Discharge Disposition: 01 Home, Self Care - DIAGNOSES Admission Diagnoses: Rhabdomyolysis Microcytic anemia Depression Discharge Diagnoses with Status of Each Condition: Rhabdomyolysis - improved. Iron deficiency anemia - stable. Depression - stable. - HPI History of Present Illness: This is a 21-year-old male with a past medical history significant for depression who presents today complaining of bilateral arm pain. He states his symptoms began after working out on Thursday. He had upper body workout where he did some curls for about an hour. This was the first time he had worked out in a month. He had arm soreness the following 2 days. He states the pain is only in his upper extremities predominantly in his biceps and forearms as well as upper back. He complains of no leg pain. He did play basketball and football the following days. He has been taking Aleve as needed for pain. Because his pain did not improve over the next few days, he contacted his primary care physi yifan who ordered labs and the patient states he was told upon the numbers is greater than 5000 and he will need to come to the emergency department. He states he had a similar episode when he was younger after working out and the pain ultimately resolved after a week and a half. He never had labs done at that time. He reports no weakness or numbness in his upper extremities. He believes his urine may have been a little darker this past few days but it has since cleared up and it appears normal. He has not noticed any blood in his urine. He states he did have a history of iron deficiency anemia when he was a child but stopped taking iron at around the age of 8. His father reportedly has a history of thalassemia. The patient does not believe he has ever been told this in the past. He has noticed occasional blood after a bowel movement. He denies any black stool and states he has not had any bleeding in about a month and he has only noticed a small amount when he wipes. Here in the emergency department, he was noted to have an elevated CK at 31,000. Given this, medicine was consulted for admission. - HOSPITAL COURSE Hospital Course: He was admitted to the floor for nontraumatic exertional rhabdomyolysis. His CKs were initiated and 31,000. There was no evidence of renal dysfunction. He was treated with lactated Ringer's at 250 mL an hour. He was noted to be anemic and iron studies were checked which were suggestive of iron deficiency anemia so he was started on oral iron. There was also concern that he may have thalassemi a minor and we recommended outpatient follow-up for further work-up of this. His CKs were trending down the following day and they were checked once again before planning to discharge the patient. On recheck in the afternoon they began to rise again so he was hospitalized for 1 more day. They have since been trending down and are now below 20,000. Given the downward trend in the lack of evidence of renal dysfunction, he will be discharged home. He was encouraged to drink plenty of fluids and to monitor the color of his urine and to return to the emergency department if his urine becomes tea colored or dark similar to hematuria. He was asked to follow-up with his primary care physician this week and to have further work-up of his anemia. - ALLERGIES Allergies/Adverse Reactions: Allergies Allergy/AdvReac Type Severity Reaction Status Date / Time No Known Drug Allergies Allergy Verified 09/05/21 14:10 - MEDICATIONS Home Medications: Ambulatory Orders Medication Instructions Recorded Confirmed Sertraline HCl 200 mg PO DAILY 07/13/21 09/06/21 hydrOXYzine HCL [Hydroxyzine HCl] 50 mg PO QPM 09/06/21 09/06/21 polyethylene glycoL 3350 [Miralax] 17 gm PO DAILY PRN 09/06/21 09/06/21 Ferrous Sulfate [Feosol] 325 mg PO DAILYWM #30 tablet 09/07/21 - PHYSICAL EXAM AT DISCHARGE General Appearance: positive: No acute distress, Alert Eyes Bilateral: positive: Normal inspection, Conjunctivae nml ENT: positive: ENT inspection nml Neck: positive: Nml inspection Respiratory: positive: No respiratory distress. negative: Wheezes, Rales Cardiovascular: positive: Regular rate & rhythm, No murmur. negative: Tachycard ia Abdomen: positive: Non-tender, No distention. negative: Tenderness Skin: positive: Warm, Dry Extremities: positive: Other (Very mild tenderness of the bilateral upper extremities predominantly over the forearms. Compartments are soft. Capillary refill <2 seconds.) Neurologic/Psychiatric: positive: Motor nml. negative: Disoriented to person, Disoriented to place - LABS Result Diagrams: 09/07/21 04:15 09/07/21 04:15 Other Lab Results: Vital Signs - 24 hr 09/06/21 09/06/21 09/06/21 11:10 15:21 20:06 Temperature 36.9 C 37.1 C 37.1 C Heart Rate [ 62 68 72 Brachial] Respiratory 16 19 17 Rate Blood Pressure 130/69 [Left Brachial artery] Blood Pressure 126/67 122/71 [Right Brachial artery] O2 Saturation 100 100 99 09/06/21 09/07/21 09/07/21 23:45 05:00 07:35 Temperature 37.0 C 37 C 37 C Heart Rate [ 53 L 72 77 Brachial] Respiratory 17 18 17 Rate Blood Pressure [Left Brachial artery] Blood Pressure 110/53 L 136/77 H 137/76 H [Right Brachial artery] O2 Saturation 100 100 100 Oxygen O2 Source Room air - FOLLOW UP Follow Up: He was asked to follow-up with his primary care physician within the week and to refrain from working out until he is seen by his primary care physician. We discussed that he will likely need to tailor his future workouts to prevent recurrence. He was asked to drink plenty of fluids. The patient will need further work-up of his anemia given his father has a history of thalassemia and I suspect the patient may potentially have thalassemia minor. He will also need work up for potential sickle cell trait. - TIME SPENT Time Spent in Discharge (Minutes): 33
[2021-09-08] MEDS ORDERED: FERROUS SULFATE 325 MG TABLET PO SCH (08:00)
== END 2021-09-07 11:13 | disposition home or self-care (01) ==
LOC: ED 14:02 → MS2 16:53
PROVIDERS: ADMIT Internal Medicine; ATTEND Internal Medicine
DX: M62.82 Rhabdomyolysis (principal); D50.9 Iron deficiency anemia, unspecified; F32.A Depression, unspecified; Z20.822 Contact with and (suspected) exposure to COVID-19; K62.5 Hemorrhage of anus and rectum
CPT/HCPCS: 36415; 80048; 82550; 82728; 83540; 84100; 84466; 85025; 87635; 96360; 96361; 99283; 99285; G0378; J7120

== ENCOUNTER 2022-04-29 11:42 | Emergency (ER) | payer OTHER ==
[2022-04-29 11:55] VITALS: BP 147/86
--- NOTE | 2022-04-29 14:26 | ED Physician Documentation ---
PD HPI HEADACHE - Stated complaint Stated Complaint: HEAD PX - Chief complaint Chief Complaint: Neuro - History obtained from History obtained from: Patient - History of Present Illness Timing - onset: How many months ago (3) Timing - onset during: Light activity. No: Exertion Timing - duration: Hours (patient says he had had 3 months of nearly daily headaches, with other occasional more severe headaches left sided, associated with nausea, light sensitive. No noted trauma. No rash/sinus drainage/ focal deficits.) Timing - details: Gradual onset, Still present, Waxing and waning Worst headache ever?: Worst headache ever? (he has had similar headaches over the 3 months. Seen in ER 3 months ago initially with Rx for migraine type headaches. He states meds worked okay. but still with nearly daily headaches.) Location: Front, Left, Global Quality: Throbbing, Aching Associated symptoms: Nausea. No: Fever, Stiff neck, Vomiting, Vision changes (but has light sensitivity.) Improved by: Dark room Worsened by: Light Contributing factors: No: Hypertension, Recent illness, Trauma Similar symptoms before: No diagnosis Recently seen: Emergency Dept (3 months ago, not seen by PCP.) Review of Systems Constitutional: denies: Fever, Chills Eyes: reports: Photophobia. denies: Loss of vision Nose: denies: Rhinorrhea / runny nose, Congestion Throat: denies: Sore throat Respiratory: denies: Cough GI: reports: Nausea. denies: Vomiting, Diarrhea Neurologic: reports: Headache. denies: Focal weakness, Numbness, Altered mental status, Head injury PD PAST MEDICAL HISTORY - Past Medical History Past Medical History: Yes Cardiovascular: None Respiratory: Pneumonia Neuro: None Endocrine/Autoimmune: None Psych: Depression - Past Surgical History Past Surgical History: No - Present Medications Home Medications: Ambulatory Orders Medication Instructions Recorded Confirmed hydrOXYzine HCL [Hydroxyzine HCl] 50 mg PO QPM 09/06/21 04/29/22 Promethazine [Phenergan] 25 mg PO HS PRN 12/31/21 04/29/22 Naproxen 250 mg PO TID PRN 7 Days #20 tablet 04/29/22 Nortriptyline [Pamelor] 10 mg PO HS 30 Days #30 cap 04/29/22 Ondansetron Odt [Zofran] 4 mg TL Q6H PRN #10 tablet 04/29/22 SUMAtriptan [Imitrex] 25 mg PO Q6H PRN #5 tablet 04/29/22 - Allergies Allergies/Adverse Reactions: Allergies Allergy/AdvReac Type Severity Reaction Status Date / Time No Known Drug Allergies Allergy Verified 04/29/22 11:51 - Social History Does the pt smoke?: Yes Smoking Status: Current every day smoker Does the pt drink ETOH?: No Does the pt have substance abuse?: No - Immunizations Immunizations are current?: Yes - POLST Patient has POLST: No PD ED PE NORMAL - Vitals Vital signs reviewed: Yes - General General: Alert and oriented X 3, Well developed/nourished, Other (appears uncomfortable due to headache with hollins dovering head to block light. ) - HEENT HEENT: PERRL, EOMI, Ears normal, Pharynx benign - Neck Neck: Supple, no meningeal sign, No adenopathy - Cardiac Cardiac: RRR, No murmur - Respiratory Respiratory: Clear bilaterally - Derm Derm: Normal color, Warm and dry - Extremities Extremities: Normal ROM s pain - Neuro Neuro: Alert and oriented X 3, rumper 2-12 intact, No motor deficit, No sensory deficit, Normal speech, Other Eye Opening: Spontaneous Motor: Obeys Commands Verbal: Oriented GCS Score: 15 Results - Vitals Vitals: Vital Signs - 24 hr 04/29/22 04/29/22 11:48 16:48 Temperature 36.4 C L Heart Rate 84 78 Respiratory 16 14 Rate Blood Pressure 147/86 H 147/86 H O2 Saturation 95 95 Oxygen O2 Source Room air - Labs Labs: Laboratory Tests 04/29/22 04/29/22 04/29/22 15:08 15:08 15:08 WBC 7.8 RBC 6.48 H Hgb 12.5 L Hct 40.9 L MCV 63.1 L MCH 19.3 L MCHC 30.6 L RDW 18.9 H Plt Count 234 MPV 8.5 Neut # (Auto) 4.2 Lymph # (Auto) 2.6 [place] # (Auto) 0.7 Eos # (Auto) 0.2 Baso # (Auto) 0.0 Absolute Nucleated RBC 0.00 Nucleated RBC % 0.0 Manual Slide Review Indicated Platelet Estimate NORMAL (130-450,000) Platelet Morphology NORMAL APPEARANCE RBC Morph Micro Appear 1+ POLYCHROMASIA ESR 1 Sodium 138 Potassium 4.0 Chloride 102 Carbon Dioxide 29 Anion Gap 7.0 BUN 16 Creatinine 1.0 Estimated GFR (MDRD) 113 Glucose 96 Calcium 9.8 Total Bilirubin 0.9 AST 16 ALT 18 Alkaline Phosphatase 78 Total Protein 7.2 Albumin 4.1 Globulin 3.1 Albumin/Globulin Ratio 1.3 Lipase 44 - Rads (name of study) head cT Radiology: Prelim report reviewed (normal study.), See rad report PD MEDICAL DECISION MAKING - ED course Complexity details: reviewed results, re-evaluated patient (improved with toradol and Zofan. ), considered differential (components sounding like migraine, however has nearly daily headache for past 3 months. NPDH treatment options per UpTo[employer] reviewed and discussed with patient. ), d/w patient Departure - Departure Disposition: Home, Self Care Clinical Impression: Headache, new daily persistent (NDPH) Condition: Stable Record reviewed to determine appropriate education?: Yes Instructions: ED Cephalgia Unspecified, ED Headache Migraine Follow-Up: NICKI GONZALEZ MD [Primary Care Provider] - Prescriptions: SUMAtriptan [Imitrex] 25 mg PO Q6H PRN #5 tablet PRN Reason: Migraine Naproxen 250 mg PO TID PRN 7 Days #20 tablet PRN Reason: Headache Nortriptyline [Pamelor] 10 mg PO HS 30 Days #30 cap Ondansetron Odt [Zofran] 4 mg TL Q6H PRN #10 tablet PRN Reason: Nausea / Vomiting Comments: Your head CT scan is normal without any acute abnormalities. Your basic blood tests including blood count, chemistry panels, inflammation marker called ESR are normal. At this point I would term this as new daily persistent headache. We can try a daily medication at a low dose to see if it helps reduce the degree of them or stop the headaches (nortryptylline). It sounds like you have a migraine component as well with the worst headaches that are more severe and associated with light sensitivity/nausea. For these type headaches, you can use ondansetron if needed for nausea and try sumatriptan (Imitrex) for the headache episodes as well. I would not anticipate the sumatriptan working on the daily headaches per se. You can use naproxen twice daily if needed for headache as well. I sent prescriptions for these medications to the [facility] pharmacy. Discharge Date/Time: 04/29/22 16:49
[2022-04-29] MEDS ORDERED: KETOROLAC 30 MG/ML VIAL IM STA (14:59)
[2022-04-29] MEDS ORDERED: ONDANSETRON ODT 4 MG TABLET TL STA (15:02)
[2022-04-29 15:19] LABS: BASOPHILS % (AUTO) 0.4 %; EOSINOPHILS # (AUTO) 0.2 10^3/uL (0.0-0.7); EOSINOPHILS % (AUTO) 2.3 %; HCT - HEMATOCRIT 40.9 % (42.0-52.0); HGB - HEMOGLOBIN 12.5 g/dL (14.0-18.0); LYMPHOCYTES # (AUTO) 2.6 10^3/uL (1.5-3.5); LYMPHOCYTES % (AUTO) 33.3 %; MEAN CORPUSCULAR HEMOGLOBIN 19.3 pg (27.0-31.0); MEAN CORPUSCULAR HGB CONC 30.6 g/dL (32.0-36.0); MEAN CORPUSCULAR VOLUME 63.1 fL (80.0-94.0); MEAN PLATELET VOLUME 8.5 fL (7.4-11.4); MONOCYTES # (AUTO) 0.7 10^3/uL (0.0-1.0); MONOCYTES % (AUTO) 9.4 %; NEUTROPHILS # (AUTO) 4.2 10^3/uL (1.5-6.6); NEUTROPHILS % (AUTO) 54.3 %; PLT - PLATELET COUNT 234 10^3/uL (130-450); RED BLOOD COUNT 6.48 10^6/uL (4.70-6.10); RED CELL DISTRIBUTION WIDTH 18.9 % (12.0-15.0); WHITE BLOOD COUNT 7.8 x10^3/uL (4.8-10.8)
[2022-04-29 15:26] LABS: ALBUMIN 4.1 g/dL (3.2-5.5); ALBUMIN/GLOBULIN RATIO 1.3 (1.0-2.2); BILIRUBIN,TOTAL 0.9 mg/dL (0.2-1.0); CALCIUM 9.8 mg/dL (8.5-10.3); TOTAL PROTEIN 7.2 g/dL (6.7-8.2)
--- NOTE | 2022-04-29 15:36 | CT Report ---
PROCEDURE: HEAD WO INDICATIONS: persistent headache months TECHNIQUE: Noncontrast 4.5 mm thick angled axial sections acquired from the foramen magnum to the vertex. For r adiation dose reduction, the following was used: automated exposure control, adjustment of mA and/or kV according to patient size. COMPARISON: None. FINDINGS: Image quality: Excellent. CSF spaces: Basal cisterns are patent. No extra-axial fluid collections. Ventricles are normal in size and shape. Brain: No midline shift. No intracranial masses or hemorrhage. Lewis-white matter interface is norm al. Skull and face: Calvarium and visualized facial bones are intact, without suspicious lesions. Sinuses: Visualized sinuses and mastoids are clear. IMPRESSION: No evidence of acute intracranial process. Reviewed by: Roney Grossman MD on 04/29/2022 3:35 PM PST Approved by: Roney Grossman MD on 04/29/2022 3:35 PM PST Station ID: [id number]
[2022-04-29 16:00] LABS: PLATELET ESTIMATE, MANUAL NORMAL (130-450,000) (NORMAL); PLATELET MORPHOLOGY NORMAL APPEARANCE (NORMAL); SLIDE REVIEW? Indicated
== END 2022-04-29 16:49 | disposition home or self-care (01) ==
LOC: ED 11:42
DX: G44.52 New daily persistent headache (NDPH) (principal); F17.200 Nicotine dependence, unspecified, uncomplicated
CPT/HCPCS: 36415; 70450; 80053; 83690; 85025; 85651; 96372; 99284; Q0162

== ENCOUNTER 2023-04-07 12:47 | Outpatient (CLI) | payer OTHER ==
--- NOTE | 2023-04-07 15:19 | XRAY Report ---
PROCEDURE: Ankle 2 View RT INDICATIONS: RIGHT ANKLE PAIN TECHNIQUE: 3 views of the ankle were acquired. COMPARISON: None. FINDINGS: Bones: No fractures or dislocations. Ankle mortise is normally aligned. No suspicious bony lesions . Soft tissues: No tibiotalar joint effusion. Achilles tendon appears normal. IMPRESSION: No acute bony abnormality. Reviewed by: Gemma Lindo MD, PhD on 04/07/2023 3:18 PM PST Approved by: Gemma Lindo MD, PhD on 04/07/2023 3:18 PM PST Station ID: [id number]
== END 2023-04-07 23:59 | disposition home or self-care (01) ==
LOC: DI.N 12:47
PROVIDERS: ATTEND Specialist
DX: M25.571 Pain in right ankle and joints of right foot (principal)

== ENCOUNTER 2023-10-19 12:27 | Outpatient (CLI) | payer OTHER | END 2023-10-19 23:59 | disposition critical access hospital (66) | LOC: EMS 12:27 | DX: R07.89 Other chest pain (principal); I49.8 Other specified cardiac arrhythmias; R42 Dizziness and giddiness | CPT/HCPCS: A0425; A0429 ==

== ENCOUNTER 2023-10-19 12:48 | Emergency (ER) | payer OTHER ==
--- NOTE | 2023-10-19 13:04 | ED Physician Documentation ---
PD HPI CHEST PAIN - Stated complaint Stated Complaint: CP - History obtained from History obtained from: Patient - History of Present Illness Timing - onset: Today Timing - onset during: Exertion (he was doing intense workout of hundreds pushups, situps, pullups and then running on treadmill. developed some pain in upper abd/lower chest area with movement and deep breathing. No dyspnea, near syncope, syncope. No prior exertional pain. Current workout was more intense than usual.) Timing - duration: Hours Timing - details: Gradual onset, Still present, Still present in ED Quality: Aching, Sharp, Pain Location: Substernal, Epigastric Improved by: Rest Worsened by: Inspiration, Movement, Palpation Associated symptoms: No: Shortness of air, Nausea, Feeling faint / dizzy Similar symptoms before: Has not had sx before Recently seen: Clinic (went to Walk In and referred to ER due to being chest pain and also noted to be bradycardic, which concernedn them. Pt states not sure what resting HR is.), Other (no recent travel nor injury.) Review of Systems Constitutional: denies: Fever, Chills Nose: denies: Rhinorrhea / runny nose, Congestion Throat: denies: Sore throat Respiratory: denies: Cough GI: denies: Nausea, Vomiting Musculoskeletal: denies: Extremity swelling PD PAST MEDICAL HISTORY - Past Medical History Cardiovascular: None Respiratory: Pneumonia Neuro: None Endocrine/Autoimmune: None Psych: Depression - Past Surgical History Past Surgical History: No - Present Medications Home Medications: Ambulatory Orders Medication Instructions Recorded Confirmed hydrOXYzine HCL [Hydroxyzine HCl] 50 mg PO QPM 09/06/21 04/29/22 Promethazine [Phenergan] 25 mg PO HS PRN 12/31/21 04/29/22 Naproxen 250 mg PO TID PRN 7 Days #20 tablet 04/29/22 Nortriptyline [Pamelor] 10 mg PO HS 30 Days #30 cap 04/29/22 Ondansetron Odt [Zofran] 4 mg TL Q6H PRN #10 tablet 04/29/22 SUMAtriptan [Imitrex] 25 mg PO Q6H PRN #5 tablet 04/29/22 Ibuprofen [Motrin] 600 mg PO TID PRN #20 tab 10/19/23 - Allergies Allergies/Adverse Reactions: Allergies Allergy/AdvReac Type Severity Reaction Status Date / Time No Known Drug Allergies Allergy Verified 10/19/23 13:12 - Social History Does the pt smoke?: Yes Smoking Status: Current every day smoker Does the pt drink ETOH?: No Does the pt have substance abuse?: No - Immunizations Immunizations are current?: Yes - POLST Patient has POLST: No PD ED PE NORMAL - Vitals Vital signs reviewed: Yes - General General: Alert and oriented X 3, No acute distress, Well developed/nourished - Neck Neck: Supple, no meningeal sign, No adenopathy - Cardiac Cardiac: No murmur. No: RRR (regular but regularly bradycardic in 40s-60.) - Respiratory Respiratory: No respiratory distress, Clear bilaterally, Other (some tenderness at lower sternal border. Not tender lower costal margin. The upper abd is tender epigastric area to upper abd rectus area. ) - Abdomen Abdomen: Soft - Derm Derm: Normal color, Warm and dry - Extremities Extremities: No edema, No calf tenderness / cord - Neuro Neuro: Alert and oriented X 3, No motor deficit, Normal speech Results - Vitals Vitals: Oxygen O2 Source Nasal cannula - EKG (time done) 12:56 EKG releavant findings:: EKG personally interpreted by author of this note. Relevant findings are: Rate: Rate (enter#) (49) Rhythm: Sinus bradycardia [place]: Normal Intervals: Normal NC QRS: Normal Ischemia: Normal ST segments. No: ST elevation c/w ischemia, ST depression - Labs Labs: Laboratory Tests 10/19/23 10/19/23 10/19/23 13:37 13:37 13:37 WBC 13.9 H RBC 6.76 H Hgb 13.1 L Hct 42.6 MCV 63.0 L MCH 19.4 L MCHC 30.8 L RDW 18.7 H Plt Count 269 MPV 8.6 Neut # (Auto) 11.2 H Lymph # (Auto) 1.8 [place] # (Auto) 0.7 Eos # (Auto) 0.1 Baso # (Auto) 0.0 Absolute Nucleated RBC 0.02 Nucleated RBC % 0.1 Manual Slide Review Indicated RBC Morph Micro Appear 1+ OVALOCYTES Sodium 138 Potassium 3.8 Chloride 104 Carbon Dioxide 27 Anion Gap 7.0 BUN 13 Creatinine 1.3 Estimated GFR (MDRD) 83 L Glucose 102 Calcium 10.0 Total Bilirubin 0.8 AST 18 ALT 22 Alkaline Phosphatase 76 Troponin I High Sens 4.6 B-Natriuretic Peptide 5 Total Protein 6.5 Albumin 4.4 Globulin 2.1 Albumin/Globulin Ratio 2.1 Lipase 31 - Rads (name of study) chest xray Relevant Findings:: Prelim report reviewed, EMP independent interpretation of test (no acute process) PD Medical Decision Making - ED course Complexity details: reviewed results (I think his bradycardia is likley normal for him as he does work out regularly, fairly fit. Normal trop and BNP. has tenderness of palpation of upper abd muscles. ), considered differential (seems muscular of abd rectus upper abd muscles. He was doing intense workout with lots of use of those muscles. ECG and chest xray normal. Negative labs for trop, BNP and lytes. WBC elevated at 13K. Not having current flu/illness symptoms. No skin rash. ), d/w patient Departure - Departure Disposition: 01 Home, Self Care Clinical Impression: Chest pain Condition: Stable Record reviewed to determine appropriate education?: Yes Instructions: ED Chest Pain Atypical Unkn Cause Follow-Up: [facility] [Provider Group] Prescriptions: Ibuprofen [Motrin] 600 mg PO TID PRN #20 tab PRN Reason: Pain Comments: Your EKG and chest x-ray are normal. Blood tests that look for signs of heart attack or heart muscle injury/heart failure are normal. Your blood count and white count are normal as are pancreas and liver enzymes. No signs of more significant cause for your pain. I presume a deep muscular type pain in the upper abdomen/chest. Consideration could be heartburn or such to. 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 Activity based on comfort. Ibuprofen 3 times daily with food for the next several days to week. In this case the ibuprofen does make sense as an anti-inflammatory to help with pain. Add Tylenol every 4-6 hours if needed. If you feel discomfort with eating or so, you could also add antacid such as Maalox or Mylanta. Follow-up with your primary care or walk-in clinic if you find consistent symptoms more than a few days. Follow-up with your primary as well if you find recurring discomfort or pain with exertional activity and any pattern that way. Your heart rate is slow in the upper 40s to 50s but that is actually not unusual with athletic folks who are in shape and have good cardiovascular tone. Forms: PCP List Discharge Date/Time: 10/19/23 15:09
[2023-10-19 13:18] VITALS: O2SAT 99
[2023-10-19] MEDS: KETOROLAC 15 MG/ML VIAL IVP STA (13:34)
[2023-10-19] MEDS: MAG HYDROX/AL HYDROX/SIMETH 30 ML UDC PO STA (13:34)
--- NOTE | 2023-10-19 13:43 | XRAY Report ---
PROCEDURE: Chest 1V INDICATIONS: Chest Pain TECHNIQUE: One view of the chest was acquired. COMPARISON: 09/15/2020. FINDINGS: Surgical changes and devices: None. Lungs and pleura: No pleural effusions or pneumothorax. Lungs are clear. Mediastinum: Mediastinal contours appear normal. Heart size is normal. Bones and chest wall: No suspicious bony lesions. Overlying soft tissues appear unremarkable. IMPRESSION: No acute cardiopulmonary process. Reviewed by: Rocky Tejada MD on 10/19/2023 1:41 PM PDT Approved by: Rocky Tejada MD on 10/19/2023 1:41 PM PDT Station ID: [id number]
[2023-10-19 13:45] LABS: BASOPHILS % (AUTO) 0.2 %; EOSINOPHILS # (AUTO) 0.1 10^3/uL (0.0-0.7); EOSINOPHILS % (AUTO) 0.4 %; HCT - HEMATOCRIT 42.6 % (42.0-52.0); HGB - HEMOGLOBIN 13.1 g/dL (14.0-18.0); LYMPHOCYTES # (AUTO) 1.8 10^3/uL (1.5-3.5); LYMPHOCYTES % (AUTO) 13.2 %; MEAN CORPUSCULAR HEMOGLOBIN 19.4 pg (27.0-31.0); MEAN CORPUSCULAR HGB CONC 30.8 g/dL (32.0-36.0); MEAN PLATELET VOLUME 8.6 fL (7.4-11.4); MONOCYTES # (AUTO) 0.7 10^3/uL (0.0-1.0); MONOCYTES % (AUTO) 5.3 %; NEUTROPHILS # (AUTO) 11.2 10^3/uL (1.5-6.6); NEUTROPHILS % (AUTO) 80.6 %; NRBC ABSOLUTE COUNT (AUTO) 0.02 x10^3/uL; NUCLEATED RED BLOOD CELLS AUTO 0.1 /100WBC; PLT - PLATELET COUNT 269 10^3/uL (130-450); RED BLOOD COUNT 6.76 10^6/uL (4.70-6.10); RED CELL DISTRIBUTION WIDTH 18.7 % (12.0-15.0); WHITE BLOOD COUNT 13.9 x10^3/uL (4.8-10.8)
[2023-10-19 13:48] LABS: SLIDE REVIEW? Indicated
[2023-10-19 14:10] LABS: TROPONIN I HIGH SENSITIVITY 4.6 ng/L (2.3-19.7)
[2023-10-19 14:15] LABS: ALBUMIN 4.4 g/dL (3.2-5.5); ALBUMIN/GLOBULIN RATIO 2.1 (1.0-2.2); BILIRUBIN,TOTAL 0.8 mg/dL (0.2-1.0); CREATININE 1.3 mg/dL (0.6-1.3); POTASSIUM 3.8 mmol/L (3.5-4.5); TOTAL PROTEIN 6.5 g/dL (6.4-8.9)
[2023-10-20 11:39] VITALS: BP 140/75
== END 2023-10-19 15:09 | disposition home or self-care (01) ==
LOC: EDUNIT# → ED 12:48
DX: R07.9 Chest pain, unspecified (principal); F17.200 Nicotine dependence, unspecified, uncomplicated; Z79.899 Other long term (current) drug therapy
CPT/HCPCS: 36415; 71045; 80053; 83690; 83880; 84484; 85025; 93005; 96374; 99284; A9270